=== PATIENT | male | born 1980 | race Caucasian/White ===

== ENCOUNTER 2021-03-15 13:07 | Emergency (ER) | payer MEDICAID ==
[~2021-03-15] VITALS: Ht 190.5 cm; Wt 81.8 kg
[~2021-03-15 13:07] MED LIST: METH4TAB3 PO
[2021-03-15 13:40] VITALS: BP 139/80
[2021-03-15 15:16] LABS: CLARITY,URINE CLOUDY (Clear); COLOR,URINE YELLOW (Yellow); GLUCOSE, URINE NEGATIVE (Neg); KETONES,URINE NEGATIVE (Neg); LEUKOCYTE ESTERASE ,URINE MODERATE (Neg); NITRITES, URINE NEGATIVE (Neg); OCCULT BLOOD,URINE LARGE (Neg); PROTEIN,URINE >=300 mg/dl (Neg); UROBILINOGEN,URINE 0.2 E.U/dL (0.2-1.0)
[2021-03-15 15:24] LABS: UA COLLECTION TYPE CLN CATCH MIDSTREAM
[2021-03-15 15:25] LABS: BACTERIA,URINE 4+ /HPF (Neg); MUCUS STRANDS NONE SEEN /LPF (Neg); RBC,URINE 0-2 /HPF (0-2); SQUAMOUS EPITHELIAL CELL,UR FEW /LPF (FEW); WBC,URINE 50-100 /HPF (0-4)
[2021-03-15] MEDS ORDERED: CefTRIAXone 1000mg IM Kit (w/lidocaine diluent) IM STA (16:52)
[2021-03-15] MEDS ORDERED: azithromycin 250mg tablet PO ONE (16:55)
[2021-03-15] MEDS ORDERED: NITR100C6 PO (17:04)
== END 2021-03-15 17:20 | disposition home or self-care (01) ==
LOC: ER 13:08
DX: N39.0 Urinary tract infection, site not specified (principal); N43.3 Hydrocele, unspecified; R30.0 Dysuria; Z72.89 Other problems related to lifestyle; Z79.899 Other long term (current) drug therapy
CPT/HCPCS: 36415; 76870; 81001; 87491; 87591; 93976; 96372; 99284; J0696

== ENCOUNTER 2023-06-20 21:32 | Emergency (ER) | payer MEDICAID ==
[~2023-06-20] VITALS: Ht 190.5 cm; Wt 81.8 kg
[~2023-06-20 21:32] MED LIST changes: +NITR100C6 PO
[2023-06-20] MEDS ORDERED: CEPH-585 PO (22:50)
[2023-06-20] MEDS ORDERED: SULF1TAB49 PO (22:50)
[2023-06-20] MEDS ORDERED: NAPR-56 PO (22:50)
[2023-06-20 22:59] VITALS: BP 131/91; PULSE 87; RESP 16; TEMP 98; O2SAT 98
== END 2023-06-20 23:01 | disposition home or self-care (01) ==
LOC: ER 21:34
DX: L02.512 Cutaneous abscess of left hand (principal); L03.114 Cellulitis of left upper limb; Z72.89 Other problems related to lifestyle
CPT/HCPCS: 99283; 99284